=== PATIENT | female | born 1945 | race Caucasian/White ===

== ENCOUNTER 2017-11-28 12:58 | Inpatient (IN) | payer OTHER ==
[2017-11-28] MEDS ORDERED: POLYETHYL GLY 3350 17 GM/DOSE PO PRN (14:59)
[2017-11-28] MEDS ORDERED: ONDANSETRON 4 MG (ODT) TAB PO PRN (14:59)
[2017-11-28] MEDS ORDERED: ACETAMINOPHEN 325 MG TABLET PO PRN (14:59)
[2017-11-28] MEDS ORDERED: ONDANSETRON 4 MG/2 ML VIAL IV PRN (14:59)
[2017-11-28] MEDS ORDERED: DIPHENHYDRAMINE 25 MG TAB/CAP PO PRN (14:59)
[2017-11-28] MEDS ORDERED: HYDROMORPHONE HCL 2 MG/ML inj IV PRN (15:01)
[2017-11-28] MEDS ORDERED: ALBUTEROL 2.5 MG/3 ML NEB SOL IH PRN (15:03)
[2017-11-28 15:11] LABS: Absolute Lymphocytes (CBC) 0.4 K/uL (0.7-4.9); Absolute Monocytes 0.4 K/uL (0.1-1.3); Basophils % 0.3 % (0-1.3); Eosinophils % 0.3 % (0-4.4); Lymphocytes % 6.1 % (15.3-44.8); MCH 29.8 pg (27.0-35.0); MCV 88.2 fL (80-100); MPV 9.1 fL (7.6-11.3); Monocytes % 5.6 % (3.3-12.3); RBC Red Blood Cell Count 4.53 M/uL (3.86-4.86)
[2017-11-28 15:19] LABS: Potassium 3.9 mEq/L (3.6-5.0)
[2017-11-28 15:25] LABS: Albumin 3.8 g/dL (3.2-5.5); Bilirubin Direct 0.2 mg/dL (0-0.2); Bilirubin Total 0.9 mg/dL (0.3-1.2); Magnesium 1.9 mg/dL (1.8-2.5); Phosphorus 2.7 mg/dL (2.5-4.3); Protein, Total 7.3 g/dL (6.0-8.3)
[2017-11-28 15:26] LABS: Protime INR 4.07
[2017-11-28 15:57] LABS: Thyroid Stimulating Hormone 2.52 uIU/mL (0.34-5.60)
[2017-11-28 15:59] LABS: Urine White Blood Cell Casts OK
[2017-11-28 16:00] LABS: Blood Morphology Comment NOT SEEN (NOT SEEN); Platelet Estimate ADEQ
[2017-11-28 16:15] VITALS: BMI 34.9
[2017-11-28] MEDS: METRONIDAZOLE 500mg IVPB 500 MG/100 ML BAG IV SCH (17:35)
[2017-11-28] MEDS: NACHLORIDE 0.45% 1,000 ML IV SCH (17:35)
[2017-11-28] MEDS ORDERED: LEVALBUTEROL 1.25 MG/3 ML NEB IH PRN (17:41)
[2017-11-28] MEDS ORDERED: IPRATROPIUM BROM 0.5MG/2.5ML IH PRN (17:41)
--- NOTE | 2017-11-28 19:07 | RAD REPORT ---
EXAM DESCRIPTION: RAD - Chest Pa And Lat (2 Views) - 11/28/2017 6:54 pm CLINICAL HISTORY: Chest pain. COMPARISON: 05/30/2011 FINDINGS: The lungs are clear. The heart is moderately enlarged. Vertebroplasty cement noted in the mid thoracic levels. IMPRESSION: The heart is moderately enlarged.
--- NOTE | 2017-11-28 19:10 | RAD REPORT ---
EXAM DESCRIPTION: CTAbdomen Pelvis W Contrast - 11/28/2017 6:38 pm CLINICAL HISTORY: Abdominal pain. COMPARISON: 06/26/2008 TECHNIQUE: Biphasic CT imaging of the abdomen and pelvis was performed with 100 ml non-ionic IV cont rast. All CT scans are performed using dose optimization technique as appropriate and may include automated exposure control or mA/KV adjustment according to patient size. FINDINGS: The lung bases are clear. The liver demonstrates fatty infiltration. The spleen, pancreas, adrenal glands and kidneys are withi n normal limits. No bowel obstruction, free air, free fluid or abscess. Appendectomy. Hysterectomy. No evidence of si gnificant lymphadenopathy. No suspicious bony findings. IMPRESSION: No acute intra-abdominal or pelvic finding. Fatty liver.
[2017-11-28] MEDS ORDERED: IPRATROPIUM BROM 0.5MG/2.5ML IH SCH (20:00)
[2017-11-28] MEDS ORDERED: LEVALBUTEROL 1.25 MG/3 ML NEB IH SCH ×2 (20:00)
[2017-11-28] MEDS: CIPROFLOXACIN 400mg IV 400 MG/200 ML BAG IV SCH (22:12)
--- NOTE | 2017-11-28 23:45 | EKG ---
Test Date: 2017-11-28 Test Time: 15:51:54 Chemistry Technologist: NASIM MEASUREMENT RESULTS: Intervals: Rate: 83 MA: QRSD: 88 QT: 322 QTc: 378 [place]e: P: MA: QRS: -64 T: 263 INTERPRETIVE STATEMENTS: Atrial fibrillation Left axis deviation Nonspecific ST and T wave abnormality, probably digitalis effect Abnormal ECG Compared to ECG 04/16/2005 08:14:00 Left-axis deviation now present Sinus rhythm no longer present Electronically Signed On 11-28-17 23:44:47 CDT by Johnie Fernandez
[2017-11-29] MEDS: METRONIDAZOLE 500mg IVPB 500 MG/100 ML BAG IV SCH ×4 (00:49→17:38)
[2017-11-29 04:10] LABS: Absolute Lymphocytes (CBC) 0.5 K/uL (0.7-4.9); Absolute Monocytes 0.5 K/uL (0.1-1.3); Absolute Neutrophil 5.9 K/uL (1.8-8.0); Basophils % 0.3 % (0-1.3); Eosinophils % 0.2 % (0-4.4); Hematocrit 37.3 % (36.0-45.0); Lymphocytes % 6.8 % (15.3-44.8); MCH 29.8 pg (27.0-35.0); MCV 89.1 fL (80-100); MPV 9.2 fL (7.6-11.3); Monocytes % 6.7 % (3.3-12.3); RBC Red Blood Cell Count 4.18 M/uL (3.86-4.86)
[2017-11-29 04:13] LABS: Protime INR 3.68
[2017-11-29] MEDS: LOPERAMIDE HCL 2 MG CAPSULE PO PRN ×2 (04:29→18:48)
[2017-11-29 04:45] LABS: Potassium 3.5 mEq/L (3.6-5.0)
[2017-11-29 04:55] LABS: Magnesium 1.8 mg/dL (1.8-2.5)
[2017-11-29] MEDS ORDERED: MAGNESIUM SULFATE 1 gm IVPB 1 GM/100 ML BAG IV ONE (05:36)
[2017-11-29] MEDS ORDERED: POTASSIUM 25 MEQ EFFERV TAB PO ONE (05:50)
[2017-11-29] MEDS: CIPROFLOXACIN 400mg IV 400 MG/200 ML BAG IV SCH ×2 (08:42→20:20)
--- NOTE | 2017-11-29 11:53 | CON ---
Date of Consultation: 11/28/2017 Reason: Lower abdominal pain and rectal pain. History Of Present Illness: The patient is a 72-year-old female, who comes in with 6-week history of pain in the rectum region on the left side and also occasionally cramping pain in the lower abdomen associated with occasional nausea. She did not have diarrhea prior to being admitted, but after the CAT scan, she has had several of loose bowel movements. She states that the pain is worse after she sits on her bottom. She did have a colonoscopy not too long ago, which was reportedly negative. No fever or chills. She did have 1 episode of chills couple of days ago and the pain got worse over the last [address] Khan yesterday and was admitted for further workup. No sore throat, runn y nose, cough, headaches, or dizziness. No chest pain. Review of Systems: Otherwise unremarkable. Past Medical History: Significant for AFib. Past Surgical History: Hysterectomy, appendectomy, and colon resection 25 years ago. Allergies: NONE. Social History: The patient denies smoking or drinking. Family History: Significant for breast cancer and lung cancer in the parents. Physical Examination: Vital Signs: Stable. She is afebrile. General: She is awake, alert, and oriented x3. Head and Neck: Cranial nerves 2 through 12 grossly within normal limits. No neck masses. No JVD. Throat clear. Neck is supple. Chest: Clear. Heart: S1, S2. Abdomen: Soft, nondistended. Positive bowel sounds. Positive suprapubic tenderness. No rebound, r igidity, or guarding. Extremity: Adequately perfused. Nontender. Neuro: Nonfocal. Rectal: Does not reveal any evidence of abscess. There is a small external hemorrhoid, which is not thrombosed, is nontender. No acute findings. Diagnostic Data: CT of the abdomen and pelvis reviewed with Dr. Miller. essentially reveals mild infla mmation on the left side of the rectum consistent with proctitis. No other significant findings note d. Laboratory Data: Her white count is 6.9 with a left shift. INR is 4.07. She is on Coumadin and alannah cat reviewed essentially unremarkable. Assessment: A 72-year-old, who was proctitis. Recommendation: The patient will need a steroid enemas, GI followup, and antibiotics, which is appro priate for her being on Coumadin. Plan of care discussed in detail with Dr. Kahn. /NEYMAR Voice ID: [id number] Report ID: [id number]
--- NOTE | 2017-11-29 18:02 | P.PN ---
Subjective Date of Service: 11/29/17 Chief Complaint: RECTAL PAIN Subjective: No new changes MS. BEAN STILL IS ABOUT THE SAME. DR. MCPHERSON SAW THE PATIENT. CT SCAN DOES NOT SHOW ANY ABSCESS LIKE SUSPECTED. STILL IN TOO MUCH PAIN. WE ARE WAITING FOR HIS GI DOCTOR NOW. Review of Systems 10-point ROS is otherwise unremarkable General: Weakness, Malaise Physical Examination - Vital Signs Temperature: 97.2 F Blood Pressure: 105/57 Pulse: 81 Respirations: 18 Pulse Ox (%): 95 - Physical Exam General: Alert, Moderate distress HEENT: Atraumatic, PERRLA, EOMI Neck: Supple, JVD not distended Respiratory: Clear to auscultation bilaterally, Normal air movement Cardiovascular: Regular rate/rhythm, Normal S1 S2 Gastrointestinal: Normal bowel sounds, No tenderness Musculoskeletal: No tenderness Integumentary: No rashes Neurological: Normal speech, Normal tone, Normal affect Lymphatics: No axilla or inguinal lymphadenopathy - Studies Laboratory Data (last 24 hrs) 11/29/17 03:48: PT 44.0 H, INR 3.68 11/29/17 03:48: Sodium 136, Potassium 3.5 L, BUN 11, Creatinine 0.97, Glucose 100, Magnesium 1.8 11/29/17 03:48: WBC 6.9, Hgb 12.5, Hct 37.3, Plt Count 157 Medications List Reviewed: Yes Assessment And Plan - Current Problems (Diagnosis) (1) Abdominal pain Onset Date: 11/29/17 Current Visit: Yes Status: Acute Plan: RESUME ABX IV SHE HAS SYMPTOMS BUT NO PHYSICAL CT SCAN FINDINGS. Qualifiers: Abdominal location: left lower quadrant Qualified Code(s): R10.32 - Left lower quadrant pain (2) Rectal pain Onset Date: 11/29/17 Current Visit: Yes Status: Acute Plan: PROCTITIS DR. RACHEL ON CASE HAS HAD ANAL CANCER IN PAST CT SCAN SHOWS PROCTITIS.
[2017-11-30] MEDS: METRONIDAZOLE 500mg IVPB 500 MG/100 ML BAG IV SCH ×3 (00:15→13:12)
[2017-11-30] MEDS: NACHLORIDE 0.45% 1,000 ML IV SCH ×2 (00:20→06:18)
[2017-11-30 06:39] LABS: Absolute Lymphocytes (CBC) 0.8 K/uL (0.7-4.9); Absolute Monocytes 0.4 K/uL (0.1-1.3); Absolute Neutrophil 3.3 K/uL (1.8-8.0); Basophils % 0.4 % (0-1.3); Eosinophils % 2.4 % (0-4.4); MPV 9.1 fL (7.6-11.3); Monocytes % 9.5 % (3.3-12.3); RBC Red Blood Cell Count 4.49 M/uL (3.86-4.86)
[2017-11-30 06:53] LABS: Potassium 3.8 mEq/L (3.6-5.0)
[2017-11-30 06:58] LABS: Protime INR 2.09
[2017-11-30] MEDS ORDERED: POTASSIUM CL SA 10 MEQ TAB PO ONE (09:00)
[2017-11-30] MEDS: CIPROFLOXACIN 400mg IV 400 MG/200 ML BAG IV SCH (09:44)
[2017-11-30 11:36] VITALS: O2SAT 96
--- NOTE | 2017-11-30 13:09 | ECHO ---
HEIGHT: 5 ft 7 in WEIGHT: 221 lb 1.6 oz DATE OF STUDY: 11/30/[address]: Harvey Khan MD 2-DIMENSIONAL: YES M.MODE: YES DOPPLER: YES COLOR FLOW: YES TDS: PORTABLE: DEFINITY: BUBBLE STUDY: DIAGNOSIS: CARDIOMEAGLY CARDIAC HISTORY: CATHERIZATION: NO SURGERY: NO PROSTHETIC VALVE: NO PACEMAKER: NO MEASUREMENTS (cm) DIASTOLIC (NORMALS) SYSTOLIC (NORMALS) IVSd 0.9 (0.6-1.2) LA Diam 4.5 (1.9-4.0) LVEF 50% LVIDd 5.2 (3.5-5.7) LVIDs 3.9 (2.0-3.5) %FS 25% LVPWd 0.9 (0.6-1.2) Ao Diam 3.3 (2.0-3.7) 2 DIMENSIONAL ASSESSMENT: RIGHT ATRIUM: DILATED LEFT ATRIUM: DILATED RIGHT VENTRICLE: NORMAL LEFT VENTRICLE: NORMAL TRICUSPID VALVE: NORMAL MITRAL VALVE: NORMAL PULMONIC VALVE: NORMAL AORTIC VALVE: NORMAL PERICARDIAL EFFUSION: NONE AORTIC ROOT: NORMAL LEFT VENTRICULAR WALL MOTION: NORMAL DOPPLER/COLOR FLOW: MILD TRICUSPID REGURGITATION MILD AORTIC REGURGITATION NORMAL RIGHT VENTRICULAR SYSTOLIC PRESSURE COMMENTS: NORMAL LEFT VENTRICULAR EJECTION FRACTION. DILATED LEFT ATRIUM. DILATED RIGHT ATRIUM. MILD AORTIC REGURGITATION. MILD TRICUSPID REGURGITATION. ATRIAL FIBRRLATION. TECHNOLOGIST: JERE GARCIA
[2017-11-30 14:25] VITALS: BP 135/53; TEMP 97.8
--- NOTE | 2017-12-11 07:35 | P.DS ---
Admission Date: 11/28/17 Discharge Date: 12/11/17 Disposition: ROUTINE DISCHARGE Discharge Condition: FAIR Reason for Admission: RECTAL PAIN - Problems (1) Abdominal pain Onset Date: 11/29/17 Status: Acute Qualifiers: Abdominal location: left lower quadrant Qualified Code(s): R10.32 - Left lower quadrant pain (2) Rectal pain Onset Date: 11/29/17 Status: Acute Hospital Course: MS. BEAN HAS LOWER ABDOMEN PAIN, LLQ AND HYPOGASTRIC. SHE IMPROVES ON IV ABX. SHEIS ON WARFARIN SO I AVOIDED CIPRO IF I COULD. SHE IS DISCHARGED HOME IN STABLE CONDITION WITH CEFTIN PO. AND FU NEXT WEEK. Vital Signs/Physical Exam: Temp Pulse Resp BP Pulse Ox 97.8 F 71 18 135/53 L 95 11/30/17 12:00 11/30/17 12:00 11/30/17 12:00 11/30/17 12:00 11/30/17 12:00 Laboratory Data at Discharge: WBC 4.7 K/uL (4.3-10.9) D 11/30/17 05:58 Hgb 13.5 g/dL (12.0-15.0) 11/30/17 05:58 Hct 40.0 % (36.0-45.0) 11/30/17 05:58 Plt Count 156 K/uL (152-406) 11/30/17 05:58 PT 24.8 SECONDS (9.5-12.5) H 11/30/17 05:58 INR 2.09 11/30/17 05:58 APTT 48.5 SECONDS (24.3-36.9) H 11/28/17 14:56 Sodium 137 mEq/L (135-145) 11/30/17 05:58 Potassium 3.8 mEq/L (3.6-5.0) 11/30/17 05:58 BUN 14 mg/dL (6-20) 11/30/17 05:58 Creatinine 0.94 mg/dL (0.44-1.00) 11/30/17 05:58 Glucose 87 mg/dL (65-120) 11/30/17 05:58 Phosphorus 2.7 mg/dL (2.5-4.3) 11/28/17 14:56 Magnesium 2.0 mg/dL (1.8-2.5) 11/30/17 05:58 Total Bilirubin 0.9 mg/dL (0.3-1.2) 11/28/17 14:56 AST 28 IU/L (10-42) 11/28/17 14:56 ALT 23 IU/L (10-60) 11/28/17 14:56 Alkaline Phosphatase 58 IU/L (42-121) 11/28/17 14:56 Home Medications: Warfarin Sodium [Coumadin*] 8 mg PO DAILY 11/28/17 Cefuroxime [Ceftin] 250 mg PO BID #14 tab 11/30/17 New Medications: Cefuroxime [Ceftin] 250 mg PO BID #14 tab Patient Discharge Instructions: REDUCE WARFARIN TO 6 MG DAILY WHILE YOU ARE TAKING ABX. COME TO OFFICE ON TUESDAY 4 PM. Followup: Harvey Khan MD [Primary Care Provider] - 12/07/17 4:00 pm (follow up)
--- NOTE | 2018-02-26 23:45 | CON ---
Date of Consultation: 11/30/2017 Reason For Consultation: Proctitis with rectal pain for months. History Of Present Illness: The patient is a 72-year-old white female with history of atrial fibrill ation, essential tremor, depression, recurrent sinus infection, and anal cancer. The patient has bee n in hospital due to persistent rectal pain for months. She also has some fevers, chills, and some l ower abdominal pain as well on admission in the right lower quadrant and left upper quadrant as well. The patient came into the hospital and found to have proctitis, has been improving on IV fluids, IV antibiotics. Rectal pain, 10/10 on admission, now down to none. She only has pain if she sits up. She feels like she is 90% improved on therapy. She did have some fevers, chills, nausea, right lowe r quadrant pain, left upper quadrant pain on admission as well. She has also had a recent increase i n stress. She had a colonoscopy in 2017. She has had the rectal pain over the past month, it appear s by her report today. Past Medical History: Significant for atrial fibrillation, atrial flutter, essential tremor, pain in left hip, paresthesias, depression, recurrent sinus infection, and anal cancer. Medications: At home include Prilosec, meclizine, Restasis, Aldactone, Coumadin. Allergies: NKDA. Social History: She is . Son in 2007 with lymphoma. Daughter on November 17, 2017, due to the Lyme disease. She is raising 3 great grandsons for the past 12 years. 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 Family History: Father of lung cancer, smoker, and diabetes as well. Mother of breast can cer with metastatic to the bone. Review of Systems: The patient has rectal pain, right lower quadrant and left lower quadrant pain, increased stress, fev ers, chills, nausea. She denies any melena, hematochezia, hemoptysis, hematuria, dysuria or polydipsia. No lower extremity, paresthesias, muscle aches, joint aches, backaches. Does have a little bit of depression . No seizure or syncope. Physical Examination: Vital Signs: The patient is 5 feet 7 inches, 223 pounds, BMI of 35 kg/m2. She has temperature 97.7 degrees Fahrenheit, pulse 68, respirations 18, blood pressure 108/56, O2 saturation 97%. HEENT: Normocephalic and atraumatic. Anicteric. Pupils equal, round, and reactive to light. Extra ocular movements are intact. Oropharynx is clear. Neck: Supple with no masses. Respirations: Clear to auscultation bilaterally. Cardiac: Regular. No gallops or rubs. Gastrointestinal: Positive bowel sounds. Soft, nondistended. There are some mild right lower quadr ant tenderness and left quadrant tenderness. No peritoneal or Zapata sign. No rebound. Extremities: No clubbing, cyanosis, or edema. 2+ pulses. Neuro: Alert and oriented x3. Grossly nonfocal. 5/5 motor strength. Sensation intact to light gato ch. Laboratory Data: The patient has a white count of 4.7, hemoglobin 13.5, hematocrit 40.3, MCV of 89, platelet count 156, polys 71% down from 86% yesterday, lymphocytes 17%, monocytes 10%, and eosinophil s 2%. PT of 24.8, INR of 2.1. Chemistry; sodium of 137, potassium 3.8, chloride 106, bicarb 24, BUN of 14, creatinine of 0.9, glucose 87, calcium 8.4, magnesium 2.0, total bilirubin 0.9, direct biliru bin 0.2, AST 28, ALT 23, alkaline phosphatase 58, total protein 7.3, albumin 3.8. Vitamin B12 of 410 . Vitamin D low at 28. TSH is 2.52. Imaging: CT of the abdomen and pelvis reveals no acute finding, but does have some fatty liver. Impression: Proctitis, improving on IV fluids and antibiotics. The patient had rectal pain 10/10 on admission, now down to none, has pain only now when she sits up. She feels 95% improved since admis corrina with some fevers, chills, and nausea on admission, that seems to be better. No night sweats or emesis. Right lower quadrant and left quadrant pain that are mild. She has increased str ess. Recent colonoscopy in 2017. She reports rectal pain from past month has improved on therapy in hospital. Recommendations: 1.We will continue on IV antibiotics and IV fluids. 2.We will continue p.r.n. pain medications and antiemetics. 3.GI Clinic followup. MLEANIE Voice ID: [id number] Report ID: [id number]
== END 2017-11-30 14:34 | disposition home or self-care (01) | DRG 395 ==
LOC: 4TH 14:16
PROVIDERS: ADMIT Internal Medicine; ATTEND Internal Medicine
DX: K62.89 Other specified diseases of anus and rectum (principal); R10.32 Left lower quadrant pain; I48.91 Unspecified atrial fibrillation; Z85.048 Personal history of other malignant neoplasm of rectum, rectosigmoid junction, and anus; Z79.01 Long term (current) use of anticoagulants
CPT/HCPCS: 36415; 71046; 74177; 80048; 80076; 82306; 82607; 83735; 84100; 84443; 85025; 85610; 85730; 87077; 87086; 87088; 87186; 93005; 93306; J0744; J3475; Q9967

== ENCOUNTER 2018-04-23 17:53 | Emergency (ER) | payer OTHER ==
[2018-04-23] MEDS ORDERED: ASPIRIN 81 MG CHEWABLE TABLET ONE (18:44)
[2018-04-23 18:53] LABS: Protime INR 2.97
[2018-04-23 18:55] LABS: Absolute Lymphocytes (CBC) 0.9 K/uL (0.7-4.9); Absolute Monocytes 0.4 K/uL (0.1-1.3); Absolute Neutrophil 2.3 K/uL (1.8-8.0); Basophils % 0.6 % (0-1.3); Eosinophils % 3.1 % (0-4.4); Hematocrit 37.4 % (36.0-45.0); Lymphocytes % 24.7 % (15.3-44.8); MCH 30.1 pg (27.0-35.0); MCV 89.6 fL (80-100); MPV 9.3 fL (7.6-11.3); Monocytes % 9.7 % (3.3-12.3); RBC Red Blood Cell Count 4.18 M/uL (3.86-4.86)
[2018-04-23 19:08] LABS: ALT/SGPT 27 U/L (12-78); AST/SGOT 24 U/L (15-37); Alkaline Phosphatase 86 U/L (45-117); BUN Blood Urea Nitrogen 15 mg/dL (7-18); Bicarbonate 28 mmol/L (21-32); Bilirubin Direct < 0.1 mg/dL (0-0.2); Bilirubin Total 0.3 mg/dL (0.2-1.0); Glucose Level 90 mg/dL (74-106); Magnesium 2.3 mg/dL (1.8-2.4); NT PRO-BNP 684 pg/mL (<125); Protein, Total 6.8 g/dL (6.4-8.2); Sodium Level 141 mmol/L (136-145); Troponin (Emerg Dept Use Only) < 0.02 ng/mL (0.0-0.045)
--- NOTE | 2018-04-23 19:22 | RAD REPORT ---
EXAM DESCRIPTION: RAD - Chest Single View - 04/23/2018 7:05 pm CLINICAL HISTORY: CHEST PAIN Chest pain. COMPARISON: Chest Pa And Lat (2 Views) dated 11/28/2017; CHEST PA AND LAT 2 VIEW dated 05/14/2011; AUGUSTO ST PA AND LAT 2 VIEW dated 06/26/2008 FINDINGS: Portable technique limits examination quality. The lungs are grossly clear. The heart is mildly prominent size. No displaced fractures. IMPRESSION: No acute intrathoracic process suspected.
--- NOTE | 2018-04-23 22:46 | EDPHYS ---
Physician Documentation [facility] Name: Ariadne Banerjee Age: 72 yrs Sex: Female : 1945 Arrival Date: 04/23/2018 Time: 17:54 Bed 27 Private MD: Harvey Khan V ED Physician Christine Blackmon HPI: 04/23 19:00 This 72 yrs old Female presents to ER via Ambulatory with complaints of Chest pm1 Pain. 19:00 The patient or guardian reports chest pain that is located primarily in the anterior pm1 chest wall, left. Onset: 4 day(s) ago. The pain does not radiate. Associated signs and symptoms: Pertinent negatives: abdominal pain, cough, diaphoresis, headache, nausea, shortness of breath, vomiting. The chest pain is described as aching. Duration: The patient or guardian reports a single episode, that is still ongoing, but improving. Modifying factors: the symptoms are aggravated by deep breath, palpation of area. Severity of pain: in the emergency department the pain is a 3 / 10. The patient has not experienced similar symptoms in the past. The patient has not recently seen a physician, the patient's primary care provider is Dr. Khan and Dr. Finch. Patient with constant chest pain for 4 days underneath her left breast. Pain reproduced with deep breathing and palpation. Patient without any other symptoms besides chest pain. No shortness of breath, diaphoresis, nausea, or vomiting. Historical: - Allergies: 18:00 No Known Allergies; hj - Home Meds: 18:00 citalopram 20 mg tab 1 tab once daily [Active]; warfarin 4 mg Oral tab 2 tabs once hj daily [Active]; famotidine 20 mg Oral tab 1 tab once daily [Active]; - PMHx: 18:00 Atrial Fib; hj - PSHx: 18:00 Appendectomy; Hysterectomy; colon resection; hj - Immunization history:: Adult Immunizations up to date. - Social history:: Smoking status: Patient/guardian denies using tobacco, Patient/guardian denies using alcohol. - Ebola Screening: : Patient negative for fever greater than or equal to 101.5 degrees Fahrenheit, and additional compatible Ebola Virus Disease symptoms Patient denies exposure to infectious person Patient denies travel to an Ebola-affected area in the 21 days before illness onset. ROS: 19:00 Constitutional: Negative for fever, chills, and weight loss, Eyes: Negative for injury, pm1 pain, redness, and discharge, ENT: Negative for injury, pain, and discharge, Neck: Negative for injury, pain, and swelling. 19:00 Respiratory: Negative for shortness of breath, cough, wheezing, and pleuritic chest pain, Abdomen/GI: Negative for abdominal pain, nausea, vomiting, diarrhea, and constipation, Back: Negative for injury and pain, : Negative for injury, bleeding, discharge, and swelling, MS/Extremity: Negative for injury and deformity, Skin: Negative for injury, rash, and discoloration, Neuro: Negative for headache, weakness, numbness, tingling, and seizure. 19:00 Cardiovascular: Positive for chest pain, Negative for edema, orthopnea, palpitations. Exam: 19:00 Constitutional: This is a well developed, well nourished patient who is awake, alert, pm1 and in no acute distress. Head/Face: Normocephalic, atraumatic. Eyes: Pupils equal round and reactive to light, extra-ocular motions intact. Lids and lashes normal. Conjunctiva and sclera are non-icteric and not injected. Cornea within normal limits. Periorbital areas with no swelling, redness, or edema. ENT: Nares patent. No nasal discharge, no septal abnormalities noted. Tympanic membranes are normal and external auditory canals are clear. Oropharynx with no redness, swelling, or masses, exudates, or evidence of obstruction, uvula midline. Mucous membranes moist. Neck: Trachea midline, no thyromegaly or masses palpated, and no cervical lymphadenopathy. Supple, full range of motion without nuchal rigidity, or vertebral point tenderness. No Meningismus. 19:00 Cardiovascular: Regular rate and rhythm with a normal S1 and S2. No gallops, murmurs, or rubs. Normal PMI, no JVD. No pulse deficits. 19:00 Respiratory: Lungs have equal breath sounds bilaterally, clear to auscultation and percussion. No rales, rhonchi or wheezes noted. No increased work of breathing, no retractions or nasal flaring. Abdomen/GI: Soft, non-tender, with normal bowel sounds. No distension or tympany. No guarding or rebound. No evidence of tenderness throughout. Back: No spinal tenderness. No costovertebral tenderness. Full range of motion. Skin: Warm, dry with normal turgor. Normal color with no rashes, no lesions, and no evidence of cellulitis. MS/ Extremity: Pulses equal, no cyanosis. Neurovascular intact. Full, normal range of motion. 19:00 Chest/axilla: Inspection: normal, Palpation: tenderness, of the left breast, that totally reproduces the patient's complaints. 19:00 atrial fibrillation 19:00 Neuro: Orientation: is normal, Motor: Sensation: is normal, no obvious gross deficits, Gait: is steady, at a normal pace, without difficulty. Vital Signs: 18:01 BP 127 / 76; Pulse 61; Resp 18; Temp 98.0; Pulse Ox 97% on R/A; Weight 104.33 kg; hj Height 5 ft. 7 in. (170.18 cm); Pain 2/10; 19:20 BP 118 / 63; Pulse 64; Resp 18; Pulse Ox 98% on R/A; mg2 20:37 BP 108 / 51; Pulse 62; Resp 18; Pulse Ox 100% on R/A; mg2 21:34 BP 125 / 59; Pulse 65; Resp 18; Pulse Ox 96% on R/A; mg2 23:19 BP 120 / 70; Pulse 70; Resp 18; Pulse Ox 100% on R/A; Pain 0/10; mg2 18:01 Body Mass Index 36.02 (104.33 kg, 170.18 cm) MDM: 18:12 Patient medically screened. pm1 22:40 ED course: Patient with apparent chest wall pain (pain reproducible with deep breathing pm1 and palpation). Patient with negative troponin greater than 4 hours apart. Patient with constant chest pain that started 3 days ago. Will discharge patient home to follow up with her PCP. 22:44 Data reviewed: vital signs. Data interpreted: Pulse oximetry: on room air is 96 %. pm1 Interpretation: normal. Counseling: I had a detailed discussion with the patient and/or guardian regarding: the historical points, exam findings, and any diagnostic results supporting the discharge/admit diagnosis, lab results, radiology results, the need for outpatient follow up, to return to the emergency department if symptoms worsen or persist or if there are any questions or concerns that arise at home. 04/23 18:10 Order name: Basic Metabolic Panel; Complete Time: 19:13 mg2 04/23 18:10 Order name: CBC with Diff; Complete Time: 19:13 mg2 04/23 18:10 Order name: LFT's; Complete Time: 19:13 mg2 04/23 18:10 Order name: Magnesium; Complete Time: 19:13 mg2 04/23 18:10 Order name: NT PRO-BNP; Complete Time: 19:13 mg2 04/23 18:10 Order name: PT-INR; Complete Time: 19:13 mg2 04/23 18:10 Order name: Troponin (emerg Dept Use Only); Complete Time: 19:13 mg2 04/23 18:10 Order name: XRAY Chest (1 view); Complete Time: 19:39 mg2 04/23 18:10 Order name: EKG; Complete Time: 18:10 mg2 04/23 18:10 Order name: Cardiac monitoring; Complete Time: 18:29 mg2 04/23 18:10 Order name: EKG - Nurse/Tech; Complete Time: 18:29 mg2 04/23 18:10 Order name: IV Saline Lock; Complete Time: 18:29 mg2 04/23 22:08 Order name: Troponin I: repeat; Complete Time: 22:44 mg2 04/23 18:10 Order name: Labs collected and sent; Complete Time: 18:29 mg2 04/23 18:10 Order name: O2 Per Protocol; Complete Time: 18:29 mg2 04/23 18:10 Order name: O2 Sat Monitoring; Complete Time: 18:29 mg2 04/23 22:08 Order name: EKG - Nurse/Tech; Complete Time: 22:34 mg2 Administered Medications: 18:41 Drug: Aspirin Chewable Tablet 324 mg Route: PO; mg2 19:02 Follow up: Response: No adverse reaction mg2 Disposition: 04/24 09:54 Co-signature as Attending Physician, Christine Blackmon MD. ma2 Disposition: 04/23/18 22:45 Discharged to Home. Impression: Chest pain, unspecified. - Condition is Stable. - Discharge Instructions: Nonspecific Chest Pain. - Medication Reconciliation Form, Thank You Letter form. - Follow up: Emergency Department; When: 2 - 3 days; Reason: Recheck today's complaints, Continuance of care, Re-evaluation by your physician. Follow up: Harvey Khan MD; When: 2 - 3 days; Reason: Recheck today's complaints, Continuance of care, Re-evaluation by your physician. - Problem is new. - Symptoms have improved. Signatures: Dispatcher [employer] EDMS Calixto Rust, RN RN hj Asa Arzate NP MECHANICAL FITTER pm1 Christine Blackmon MD MD ma2 Andres Purcell RN RN mg2 Corrections: (The following items were deleted from the chart) 04/23 23:20 22:45 04/23/2018 22:45 Discharged to Home. Impression: Chest pain, unspecified. mg2 Condition is Stable. Forms are Medication Reconciliation Form, Thank You Letter, Antibiotic Education, Prescription Opioid Use. Follow up: Emergency Department; When: 2 - 3 days; Reason: Recheck today's complaints, Continuance of care, Re-evaluation by your physician. Follow up: Harvey Khan; When: 2 - 3 days; Reason: Recheck today's complaints, Continuance of care, Re-evaluation by your physician. Problem is new. Symptoms have improved. pm1
--- NOTE | 2018-04-23 22:46 | ER ---
Nurse's Notes [facility] Name: Ariadne Banerjee Age: 72 yrs Sex: Female : 1945 Arrival Date: 04/23/2018 Time: 17:54 Bed 27 Private MD: Harvey Khan V Diagnosis: Chest pain, unspecified Presentation: 04/23 17:56 Presenting complaint: Patient states: last Tuesday, i started having chest pain, hj pressure, squeezing type pain; on and off; 01/17; reports SOB: pain is till present till today that triggered me to come to the ED; hx of A fib;. Transition of care: patient was not received from another setting of care. Onset of symptoms was April 23, 2018. Risk Assessment: Do you want to hurt yourself or someone else? Patient reports no desire to harm self or others. Initial Sepsis Screen: Does the patient meet any 2 criteria? No. Patient's initial sepsis screen is negative. Does the patient have a suspected source of infection? No. Patient's initial sepsis screen is negative. Care prior to arrival: None. 17:56 Method Of Arrival: Ambulatory 17:56 Acuity: GRETCHEN 3 hj Triage Assessment: 18:00 General: Appears in no apparent distress. uncomfortable, obese, Behavior is calm, hj cooperative, appropriate for age. Pain: Complains of pain in chest Pain radiates to back Pain currently is 2 out of 10 on a pain scale. Cardiovascular: Capillary refill < 3 seconds Patient's skin is warm and dry. Historical: - Allergies: 18:00 No Known Allergies; hj - Home Meds: 18:00 citalopram 20 mg tab 1 tab once daily [Active]; warfarin 4 mg Oral tab 2 tabs once hj daily [Active]; famotidine 20 mg Oral tab 1 tab once daily [Active]; - PMHx: 18:00 Atrial Fib; hj - PSHx: 18:00 Appendectomy; Hysterectomy; colon resection; hj - Immunization history:: Adult Immunizations up to date. - Social history:: Smoking status: Patient/guardian denies using tobacco, Patient/guardian denies using alcohol. - Ebola Screening: : Patient negative for fever greater than or equal to 101.5 degrees Fahrenheit, and additional compatible Ebola Virus Disease symptoms Patient denies exposure to infectious person Patient denies travel to an Ebola-affected area in the 21 days before illness onset. Screenin:01 Abuse screen: Denies threats or abuse. Denies injuries from another. Nutritional hj screening: No deficits noted. Tuberculosis screening: No symptoms or risk factors identified. Fall Risk None identified. Assessment: 18:01 Pain: Pain began 4 daysa go. hj 18:30 General: Appears in no apparent distress. comfortable, Behavior is calm, cooperative. mg2 Pain: Complains of pain in back and chest Pain does not radiate. Pain currently is 3 out of 10 on a pain scale. Quality of pain is described as aching, Is intermittent. Neuro: Level of Consciousness is awake, alert, obeys commands, Oriented to person, place, time, situation. Cardiovascular: Capillary refill < 3 seconds Patient's skin is warm and dry. Rhythm is atrial fibrillation. Respiratory: Airway is patent Respiratory effort is even, unlabored, Respiratory pattern is regular, symmetrical. GI: No signs and/or symptoms were reported involving the gastrointestinal system. : No signs and/or symptoms were reported regarding the genitourinary system. EENT: No signs and/or symptoms were reported regarding the EENT system. Derm: Skin is intact, is healthy with good turgor, Skin is pink, warm \T\ dry. normal. Musculoskeletal: Circulation, motion, and sensation intact. 23:20 Reassessment: Patient appears in no apparent distress at this time. Patient and/or mg2 family updated on plan of care and expected duration. Pain level reassessed. Patient is alert, oriented x 3, equal unlabored respirations, skin warm/dry/pink. Vital Signs: 18:01 BP 127 / 76; Pulse 61; Resp 18; Temp 98.0; Pulse Ox 97% on R/A; Weight 104.33 kg; hj Height 5 ft. 7 in. (170.18 cm); Pain 2/10; 19:20 BP 118 / 63; Pulse 64; Resp 18; Pulse Ox 98% on R/A; mg2 20:37 BP 108 / 51; Pulse 62; Resp 18; Pulse Ox 100% on R/A; mg2 21:34 BP 125 / 59; Pulse 65; Resp 18; Pulse Ox 96% on R/A; mg2 23:19 BP 120 / 70; Pulse 70; Resp 18; Pulse Ox 100% on R/A; Pain 0/10; mg2 18:01 Body Mass Index 36.02 (104.33 kg, 170.18 cm) ED Course: 17:54 Patient arrived in ED. rg4 17:54 Harvey Khan MD is Private Physician. rg4 17:58 Triage completed. hj 18:01 Arm band placed on right wrist. hj 18:01 Patient has correct armband on for positive identification. Placed in gown. Bed in low hj position. Call light in reach. Side rails up X 1. Adult w/ patient. quality assurance monitor chassis on. Pulse ox on. NIBP on. 18:01 Patient maintains SpO2 saturation greater than 95% on room air. hj 18:05 Asa Arzate NP is PHCP. pm1 18:05 Christine Blackmon MD is Attending Physician. pm1 18:06 Andres Purcell, CARLOS is Primary Nurse. mg2 18:15 EKG done, by ED staff, reviewed by Asa Arzate DIGITAL COMMENTATOR. mb4 18:30 No provider procedures requiring assistance completed. Inserted saline lock: 20 gauge mg2 in right forearm, using aseptic technique. Blood collected. 19:05 XRAY Chest (1 view) In Process Unspecified. EDMS 22:22 Lab(s) recollected, by me, sent to lab. mb4 22:22 Troponin I: repeat Sent. mb4 22:45 Harvey Khan MD is Referral Physician. pm1 23:20 IV discontinued, intact, bleeding controlled, No redness/swelling at site. Pressure mg2 dressing applied. Administered Medications: 18:41 Drug: Aspirin Chewable Tablet 324 mg Route: PO; mg2 19:02 Follow up: Response: No adverse reaction mg2 Outcome: 22:45 Discharge ordered by . pm1 23:20 Discharged to home ambulatory, with family. mg2 23:20 Condition: stable 23:20 Discharge instructions given to patient, family, Instructed on discharge instructions, follow up and referral plans. Demonstrated understanding of instructions, follow-up care. 23:20 Patient left the ED. mg2 Signatures: Dispatcher [employer] EDMS Calixto Rust RN RN Asa Arzate NP DIGITAL COMMENTATOR pm1 Maritza Pratt rg4 Andres Purcell RN RN [facility] [place] Almaraz mb4 Corrections: (The following items were deleted from the chart) 18:02 18:00 Pain: Complains of pain in chest Pain radiates to back Pain currently is 7 out of hj 10 on a pain scale. hj
--- NOTE | 2018-04-24 10:03 | EKG ---
Test Date: 2018-04-23 Test Time: 22:30:46 Senior Property Accountant: MADIHA MEASUREMENT RESULTS: Intervals: Rate: 64 IL: QRSD: 94 QT: 440 QTc: 453 [place]: P: IL: QRS: -27 T: -16 INTERPRETIVE STATEMENTS: Atrial fibrillation with premature ventricular or aberrantly conducted complexes Abnormal ECG Compared to ECG 11/28/2017 15:51:54 Ventricular premature complex(es) now present Left-axis deviation no longer present ST (T wave) deviation no longer present Electronically Signed On 04-24-18 10:02:40 CDT by Johnie Fernandez
--- NOTE | 2018-04-24 10:04 | EKG ---
Test Date: 2018-04-23 Test Time: 18:08:56 Manager Event: MADIHA MEASUREMENT RESULTS: Intervals: Rate: 65 MI: QRSD: 84 QT: 376 QTc: 391 [place]: P: MI: QRS: -54 T: -71 INTERPRETIVE STATEMENTS: Atrial fibrillation Left axis deviation Nonspecific ST and T wave abnormality Abnormal ECG Compared to ECG 11/28/2017 15:51:54 No significant changes Electronically Signed On 04-24-18 10:03:41 CDT by Johnie Fernandez
[2018-04-25 14:12] VITALS: BP 120/70; TEMP 98; O2SAT 100
== END 2018-04-23 23:20 | disposition home or self-care (01) ==
LOC: ER 17:53
DX: R07.9 Chest pain, unspecified (principal); I48.91 Unspecified atrial fibrillation; Z79.01 Long term (current) use of anticoagulants
CPT/HCPCS: 36415; 71045; 80048; 80076; 83735; 83880; 84484; 85025; 85610; 93005; 99285

== ENCOUNTER 2021-11-17 06:50 | Day surgery (SDC) | payer OTHER ==
[2021-11-04 15:08] LABS: Absolute Lymphocytes (CBC) 0.9 K/uL (0.7-4.9); Hematocrit 37.8 % (36.0-45.0); Lymphocytes % 27.8 % (15.3-44.8); MPV 10.1 fL (7.6-11.3)
[2021-11-04 15:15] LABS: Protime INR 1.12
[2021-11-04 15:22] LABS: Potassium 3.7 mmol/L (3.5-5.1)
--- NOTE | 2021-11-04 15:25 | RAD REPORT ---
EXAM DESCRIPTION: Juancarlos Robin And Lat (2 Views)11/04/2021 3:10 pm CLINICAL HISTORY: Preop for heart catheterization. Atrial fibrillation COMPARISON: 2020 FINDINGS: The lungs appear clear of acute infiltrate. The heart is moderately enlarged. Cement has been placed into thoracic vertebral body compression fractures
[2021-11-17] MEDS ORDERED: HEPA 1000U/500MLS 1,000 UNIT/500 ML BAG IV ONE ×2 (07:03→07:48)
[2021-11-17] MEDS ORDERED: LIDOCAINE 1% MPF 30 ML VIAL ONE (07:03)
[2021-11-17] MEDS ORDERED: NA CHLORIDE 0.9% 500 ML ONE (07:05)
[2021-11-17] MEDS ORDERED: ATROPINE SULF 1 MG/10 ML SYR IV ONE (07:29)
[2021-11-17] MEDS ORDERED: MIDAZOLAM HCL 2 MG/2 ML INJ ONE (07:29)
[2021-11-17] MEDS ORDERED: NA CHLORIDE 0.9% 0 ML ONE (07:29)
[2021-11-17] MEDS ORDERED: FENTANYL CITR 100 MCG/2 ML ONE (07:29)
--- NOTE | 2021-11-17 08:04 | OP ---
Surgeon: Samir Alex MD Cna Gna: Ms. Ashly Mccallum. Admitted to my service today on 11/17/2021 to the labor utilization superintendent as an outpatient. Procedure Performed: Left heart catheterization and selective coronary arteriogram. Indications: Ms. Banerjee is 76. Has had a history of shortness of breath and chest pain and chronic atrial fibrillation. She does take Xarelto. She held it for about 48 hours prior to the procedure. She has had an abnormal stress test. Continues to have symptoms. Scheduled for heart catheterizati on with selective coronary arteriogram today. Procedure In Detail: The patient was prepped and draped in the routine sterile fashion. Given Verse d and fentanyl for sedation. Using the Seldinger technique, 6-Colombian sheath was introduced in the [facility] common femoral artery successfully. Angiography there was normal. Angio-Seal was used to close the case. Francisco catheter left and right were used to cannulate the left main and right main respec tively. She was found to have perfectly normal coronaries. There were no complications. The patien t tolerated the procedure well. Blood Loss: 5 mL. Postoperative Diagnoses: Chest pain, shortness of breath, and atrial fibrillation that is chronic, p ositive stress test in the apical segment with normal coronaries. Plan: For medical therapy. She will go home today in 2 hours after bedrest. She will resume her Xa relto tomorrow. DIANDRA/NEYMAR Voice ID: [id number] Report ID: [id number]
[2021-11-17 08:41] VITALS: TEMP 97.3
[2021-11-17] MEDS ORDERED: NA CHLORIDE 0.9% 50 ML ONE (08:51)
[2021-11-17 09:31] VITALS: BP 112/63; O2SAT 97
== END 2021-11-17 09:40 | disposition home or self-care (01) ==
LOC: CCL 06:50
DX: R94.39 Abnormal result of other cardiovascular function study (principal); R07.9 Chest pain, unspecified; R06.02 Shortness of breath; I48.21 Permanent atrial fibrillation; I10 Essential (primary) hypertension; E78.2 Mixed hyperlipidemia; Z79.01 Long term (current) use of anticoagulants; Z79.899 Other long term (current) drug therapy
CPT/HCPCS: 85025; 80048; 36415; 85610; 85730; 71046; 93454; C1893; C1760; Q9967; G0269; J2250; J3010; J7040; J1644 ×2; J0583

== ENCOUNTER 2023-03-24 08:13 | Day surgery (SDC) | payer OTHER ==
[2023-03-24] MEDS ORDERED: NA CHLORIDE 0.9% 500 ML ONE (08:25)
[2023-03-24] MEDS ORDERED: MIDAZOLAM HCL 2 MG/2 ML INJ ONE (08:54)
[2023-03-24] MEDS ORDERED: MIDAZOLAM HCL 0 ML ONE (08:55)
[2023-03-24] MEDS ORDERED: FLUMAZENIL 0.1 MG/ML (5 mL VIAL) IV ONE (08:55)
[2023-03-24] MEDS ORDERED: HYDRALAZINE HCL 20 MG/ML VIAL ONE (08:55)
[2023-03-24] MEDS ORDERED: ATROPINE SULF 1 MG/10 ML SYR IV ONE (08:55)
[2023-03-24] MEDS ORDERED: METOPROLOL TARTRATE 5 MG/5 ML INJ IV ONE (08:55)
[2023-03-24] MEDS ORDERED: LIDOCAINE 2% MPF 5 ML VIAL ONE (09:32)
[2023-03-24] MEDS ORDERED: propofoL 200 MG/20 ML VIAL IV ONE (09:32)
--- NOTE | 2023-03-24 10:10 | OP ---
Date of Procedure: 03/24/2023 Surgeon: ALEXUS PELAYO Procedure Performed: Transesophageal echocardiogram. Indication: Atrial fibrillation, status post Watchman placement. Description Of Procedure: After risks, benefits, alternatives were explained, the patient agreed to procedure and signed informed consent. After proper time-out, deep sedation with propofol was admini stered by Anesthesia and then I inserted SHARATH probe without difficulties. Watchman was seated well. No leak or thrombus. Then, SHARATH probe was removed and the patient was sent to recovery in stable cond ition. Conclusion: Successful transesophageal echocardiogram with Watchman seated well. No leak or thrombu s. Plan is to stop Hardeeprelto. /NEYMAR Voice ID: [id number] Report ID: [id number]
--- NOTE | 2023-03-24 13:51 | TEE ---
TRANSESOPHAGEAL ECHOCARDIOGRAM REPORT CARDIOLOGY DEPARTMENT DATE OF STUDY: 03/24/2023 HEIGHT: 5'7 WEIGHT: 221 DIAGNOSIS: POST WATCHMAN CARDIAC HISTORY: CATHERIZATION: SURGERY: PROSTHETIC VALVE: PACEMAKER: 2 DIMENSIONAL ASSESSMENT: RIGHT ATRIUM: LEFT ATRIUM: RIGHT VENTRICLE: LEFT VENTRICLE: TRICUSPID VALVE: MITRAL VALVE: PULMONIC VALVE: AORTIC VALVE: PERICARDIAL EFFUSION: AORTIC ROOT: EJECTION FRACTION: % LEFT VENTRICULAR WALL MOTION: DOPPLER/COLOR FLOW: COMMENTS: 1. SHARATH PROBE WAS INSERTED WITH NO DIFFICULTY. 2. WATCHMAN IS SEATED WELL, NO LEAK, NO THROMBUS. TECHNOLOGIST: Bishnu RENEE
== END 2023-03-24 10:53 | disposition home or self-care (01) ==
LOC: EKG 08:13
PROVIDERS: ATTEND Internal Medicine
DX: I48.11 Longstanding persistent atrial fibrillation (principal); Z98.890 Other specified postprocedural states; I10 Essential (primary) hypertension; E78.5 Hyperlipidemia, unspecified
CPT/HCPCS: 93312; J2704; J2001; J7040; J0360; J0461; J2250

== ENCOUNTER 2023-10-03 08:00 | Observation (INO) | payer OTHER ==
[2023-10-03] MEDS ORDERED: ASPIRIN 81 MG CHEWABLE TABLET ONE (08:17)
[2023-10-03 08:36] LABS: Absolute Basophils 0.1 K/uL (0-0.5); Absolute Eosinophils 0.1 K/uL (0-0.5); Absolute Lymphocytes (CBC) 0.7 K/uL (0.7-4.9); Absolute Monocytes 0.4 K/uL (0.1-1.3); Absolute Neutrophil 3.6 K/uL (1.8-8.0); Basophils % 1.1 % (0-1.3); Hemoglobin 14.1 g/dL (12.0-15.0); Lymphocytes % 14.5 % (15.3-44.8); MCH 29.7 pg (27.0-35.0); MCHC 33.6 g/dL (32.0-36.0); MCV 88.4 fL (80-100); MPV 8.7 fL (7.6-11.3); Monocytes % 7.2 % (3.3-12.3); Neutrophils % 74.2 % (41.7-73.7); Nucleated Red Blood Cells % 0.1 % (0-0); Platelets 164 thou/uL (152-406); RBC Red Blood Cell Count 4.75 M/uL (3.86-4.86); Red Cell Distribution Width 13.5 % (12.1-15.2)
[2023-10-03 08:55] LABS: Anion Gap 7.4 mEq/L (5.0-15.0); Potassium 4.4 mEq/L (3.5-5.1)
[2023-10-03 08:56] LABS: Magnesium 2.2 mg/dL (1.6-2.4); Troponin High Sensitivity 45.4 pg/mL (<58.9)
--- NOTE | 2023-10-03 09:11 | RAD REPORT ---
EXAM DESCRIPTION: RAD - Chest Single View - 10/03/2023 9:04 am CLINICAL HISTORY: CHEST PAIN Chest pain. COMPARISON: Chest Pa And Lat (2 Views) dated 11/04/2021; Chest Pa And Lat (2 Views) dated 01/09/2021; C hest Single View dated 04/23/2018; Chest Pa And Lat (2 Views) dated 11/28/2017 FINDINGS: Portable technique limits examination quality. Mild pulmonary edema. The heart is moderately enlarged. No displaced fractures. IMPRESSION: Mild CHF.
--- NOTE | 2023-10-03 09:58 | RAD REPORT ---
EXAM DESCRIPTION: CT - Chest For Pe Angio - 10/03/2023 9:41 am CLINICAL HISTORY: Chest pain. CHEST PAIN COMPARISON: No comparisons TECHNIQUE: CT angiogram of the pulmonary arteries was performed with MIP. All CT scans are performed using dose optimization technique as appropriate and may include automated exposure control or mA/KV adjustment according to patient size. FINDINGS: No evidence of pulmonary thromboembolism. No acute aortic finding demonstrated. Mild diffuse interstitial pulmonary edema. Cardiac size is enlarged, particularly the right heart. No significant pericardial or pleural fluid. No concerning bony finding. IMPRESSION: No evidence of pulmonary thromboembolism. Mild CHF/ volume overload pattern.
--- NOTE | 2023-10-03 10:14 | ER ---
Nurse's Notes [facility] Name: Ariadne Banerjee Age: 78 yrs Sex: Female : 1945 Arrival Date: 10/03/2023 Time: 08:00 Bed 7 Private MD: Diagnosis: Chest pain, unspecified Presentation: 10/02 08:03 Chief complaint: Chief complaint: Patient states: chest pain that is described as aa5 heaviness, began at 0400 today, reports radiates up to jaw. 08:03 Onset of symptoms was October 03, 2023. aa5 08:03 Acuity: GRETCHEN 2 aa5 08:03 Coronavirus screen: At this time, the client does not indicate any symptoms associated aa5 with coronavirus-19. Ebola Screen: Patient denies travel to an Ebola-affected area in the 21 days before illness onset. Initial Sepsis Screen: Does the patient meet any 2 criteria? No. Patient's initial sepsis screen is negative. Does the patient have a suspected source of infection? No. Patient's initial sepsis screen is negative. Risk Assessment: Do you want to hurt yourself or someone else? Patient reports no desire to harm self or others. 08:03 Method Of Arrival: Ambulatory aa5 Triage Assessment: 08:15 General: Appears in no apparent distress. obese, Behavior is cooperative, appropriate bp for age, anxious. Pain: Complains of pain in chest. Cardiovascular: Reports chest pain, since 0400. Historical: - Allergies: 08:03 No Known Allergies; aa5 - PMHx: 08:03 Atrial Fib; cancer (anal) (Atrial Fib); aa5 - PSHx: 08:03 watchman (Atrial Fib); aa5 08:24 hysterectomy; Appendectomy; colon resection; aa5 - Immunization history:: Adult Immunizations up to date. - Social history:: Smoking status: Patient denies any tobacco usage or history of. Screenin:15 [facility] ED Fall Risk Assessment (Adult) History of falling in the last 3 months, bp including since admission No falls in past 3 months (0 pts). Abuse screen: Denies threats or abuse. Denies injuries from another. Nutritional screening: No deficits noted. Tuberculosis screening: No symptoms or risk factors identified. Assessment: 08:15 General: SEE TRIAGE NOTE. bp 09:24 Pain: Complains of pain in chest Pain does not radiate. Pain began suddenly. ko1 10:26 Reassessment: REPORT FAXED FOR RM 426. bp Vital Signs: 08:03 BP 113 / 69; Pulse 78; Resp 18 S; Temp 97.3(TE); Pulse Ox 98% on R/A; Weight 101.15 kg aa5 (R); Height 5 ft. 7 in. (R); 08:35 BP 108 / 65; Pulse 66; Resp 15; Pulse Ox 99% ; ko1 09:26 BP 108 / 60; Pulse 73; Resp 15; Pulse Ox 99% ; ko1 10:30 BP 113 / 55; Pulse 65; Resp 16; Pulse Ox 97% ; bp 08:03 Body Mass Index 34.93 (101.15 kg, 170.18 cm) aa5 ED Course: 08:03 Patient arrived in ED. bp 08:03 Preethi Zhang, CARLOS is Primary Nurse. ko1 08:03 Madhu Velez DO is Attending Physician. ms3 08:03 Arm band placed on. aa5 08:04 Radha Szymanski FNP-C is PHCP. ms3 08:05 EKG done, by ED staff, reviewed by Radha CURRIE. aa5 08:15 Patient has correct armband on for positive identification. Provided Education on: N/A. bp Client placed on continuous cardiac and pulse oximetry monitoring. NIBP monitoring applied. quality assurance monitor final on. 08:19 Triage completed. aa5 08:30 Inserted saline lock: 22 gauge in right forearm, using aseptic technique. Blood bp collected. 08:31 Basic Metabolic Panel Sent. bp 08:31 CBC with Diff Sent. bp 08:31 Magnesium Sent. bp 08:31 NT PRO-BNP Sent. bp 08:31 Troponin HS Sent. bp 09:06 XRAY Chest (1 view) In Process Unspecified. EDMS 09:24 No provider procedures requiring assistance completed. Patient maintains SpO2 ko1 saturation greater than 95% on room air. 09:42 CT Chest For PE Angio In Process Unspecified. EDMS 10:13 Harvey Khan MD is Hospitalizing Provider. kb Administered Medications: 08:20 Drug: Aspirin PO Chewable Tablet 243 mg PO once; 81 mg tablets x 3 Route: PO; ko1 09:00 Follow up: Response: No adverse reaction ko1 10:50 Drug: fentaNYL (PF) IVP 25 mcg IVP once Route: IVP; Site: right forearm; bp 10:53 Follow up: Response: No adverse reaction bp 10:50 Drug: Ondansetron IVP 4 mg IVP once; over 2 minutes Route: IVP; Site: right forearm; bp 10:53 Follow up: Response: No adverse reaction bp Medication: 08:15 VIS not applicable for this client. bp Outcome: 10:13 Decision to Hospitalize by Provider. kb 11:22 Patient left the ED. aa5 Signatures: Dispatcher [employer] EDMS Radha Szymanski, FARMER C[employer] GRAIN-C FARMER [employer] GRAIN-Yeni Pineda RN RN aa5 Edward Jane, RN RN bp Madhu Velez DO DO ms3 Preethi Zhang, CARLOS RN ko1 Corrections: (The following items were deleted from the chart) 08:19 08:03 Chief complaint: aa5 aa5 08:20 08:03 Chief complaint: Patient states: chest pain that is described as heaviness, began aa5 at 0400 today. Chief complaint: Patient states: chest pain that is described as heaviness, began at 0400 today. aa5 08:20 08:18 Onset of symptoms was October 03, 2023 aa5 aa5 08:20 08:18 Acuity: GRETCHEN 2 aa5 aa5
--- NOTE | 2023-10-03 10:14 | EDPHYS ---
Physician Documentation [facility] Name: Ariadne Banerjee Age: 78 yrs Sex: Female : 1945 Arrival Date: 10/03/2023 Time: 08:00 Bed 7 Private MD: ED Physician Madhu Velez HPI: 10/02 10:12 This 78 yrs old Female presents to ER via Ambulatory with complaints of Chest Pain. kb 10:12 Patient is a 78-year-old female who presents for chest pain that started at 0400 this kb morning with shortness of breath. Reports heaviness to the chest that is worse with inspiration. Also reports pain to the left side of her neck and jaw but states that it is not radiating pain, this seems to be 2 separate pains. Denies nausea, vomiting, fever, cough, congestion.. Historical: - Allergies: 08:03 No Known Allergies; aa5 - PMHx: 08:03 Atrial Fib; cancer (anal) (Atrial Fib); aa5 - PSHx: 08:03 watchman (Atrial Fib); aa5 08:24 hysterectomy; Appendectomy; colon resection; aa5 - Immunization history:: Adult Immunizations up to date. - Social history:: Smoking status: Patient denies any tobacco usage or history of. ROS: 10:10 Constitutional: As per HPI kb Exam: 08:35 Constitutional: This is a well developed, well nourished patient who is awake, alert, kb and in no acute distress. Head/Face: Normocephalic, atraumatic. ENT: Moist Mucous membranes Respiratory: Respirations even and unlabored. No increased work of breathing. Talking in full sentences Abdomen/GI: Soft, non-tender. No distention Skin: Warm, dry with normal turgor. Normal color. MS/ Extremity: Pulses equal, no cyanosis. Neurovascular intact. Full, normal range of motion. Neuro: Awake and alert, GCS 15, oriented to person, place, time, and situation. Moves all extremities. Normal gait. 08:35 Cardiovascular: Rate: normal, Rhythm: irregularly irregular, 08:35 ECG was reviewed by the Attending Physician. Vital Signs: 08:03 BP 113 / 69; Pulse 78; Resp 18 S; Temp 97.3(TE); Pulse Ox 98% on R/A; Weight 101.15 kg aa5 (R); Height 5 ft. 7 in. (R); 08:35 BP 108 / 65; Pulse 66; Resp 15; Pulse Ox 99% ; ko1 09:26 BP 108 / 60; Pulse 73; Resp 15; Pulse Ox 99% ; ko1 10:30 BP 113 / 55; Pulse 65; Resp 16; Pulse Ox 97% ; bp 08:03 Body Mass Index 34.93 (101.15 kg, 170.18 cm) aa5 MDM: 08:04 Patient medically screened. ms3 10:06 Data reviewed: vital signs, nurses notes. ED course: HEART score 6. kb 10:06 Consideration of Admission/Observation Patient was admitted/placed on observation. kb Escalation of care including admission/observation considered. Management of patient was discussed with the following: Primary Care Provider: Dr Khan accepts pt for admission. 10:13 Differential diagnosis: abnormal EKG, acute myocardial infarction, coronary artery kb disease chest wall pain, congestive heart failure pulmonary embolus. The patient was given aspirin in the Emergency Department. Counseling: I had a detailed discussion with the patient and/or guardian regarding the historical points, exam findings, and any diagnostic results supporting the discharge/admit diagnosis, lab results, radiology results, the need for further work-up and treatment in the hospital. 10/02 08:09 Order name: Basic Metabolic Panel; Complete Time: 08:58 kb 10/02 08:09 Order name: CBC with Diff; Complete Time: 08:44 kb 10/02 08:09 Order name: Magnesium; Complete Time: 08:58 kb 10/02 08:09 Order name: NT PRO-BNP; Complete Time: 08:58 kb 10/02 08:09 Order name: Troponin HS; Complete Time: 08:58 kb 10/02 10:05 Order name: CRP; Complete Time: 10:34 kb 10/02 08:09 Order name: XRAY Chest (1 view); Complete Time: 09:15 kb 10/02 09:10 Order name: CT Chest For PE Angio; Complete Time: 09:59 kb 10/02 08:09 Order name: EKG; Complete Time: 08:09 kb 10/02 08:09 Order name: Cardiac monitoring; Complete Time: 08:13 kb 10/02 08:09 Order name: EKG - Nurse/Tech; Complete Time: 08:13 kb 10/02 08:09 Order name: IV Saline Lock; Complete Time: 08:31 kb 10/02 08:09 Order name: Labs collected and sent; Complete Time: 08: kb 10/02 08:09 Order name: O2 Per Protocol; Complete Time: 08: kb 10/02 08:09 Order name: O2 Sat Monitoring; Complete Time: 08: kb EC:35 Rate is 69 beats/min. Rhythm is irregularly irregular. Left axis deviation noted. QRS kb interval is normal at 86 msec. QT interval is normal at 417 msec. Clinical impression: Atrial Fibrillation. Administered Medications: 08:20 Drug: Aspirin PO Chewable Tablet 243 mg PO once; 81 mg tablets x 3 Route: PO; ko1 09:00 Follow up: Response: No adverse reaction ko1 10:50 Drug: fentaNYL (PF) IVP 25 mcg IVP once Route: IVP; Site: right forearm; bp 10:53 Follow up: Response: No adverse reaction bp 10:50 Drug: Ondansetron IVP 4 mg IVP once; over 2 minutes Route: IVP; Site: right forearm; bp 10:53 Follow up: Response: No adverse reaction bp Disposition: 10:11 I was immediately available on-site in the Emergency Department for consultation in the ms3 care of the patient. Disposition Summary: 10/03/23 10:13 Hospitalization Ordered Notes: Hospitalization Status: Observation kb Provider: Harvey Khan Location: Telemetry/MedSurg (observation) kb Condition: Stable kb Problem: new kb Symptoms: are unchanged kb Bed/Room Type: [facility] Room Assignment: 42(10/03/23 10:21) bd Diagnosis - Chest pain, unspecified kb Forms: - Medication Reconciliation Form kb - SBAR form kb - Leadership Thank You Letter kb Signatures: Dispatcher [employer] Radha Diamond FNP-C FNP-Mackenzie Pizano Audri, RN RN aa5 Edward Jane RN RN bp Madhu Velez DO DO ms3 Preethi Zhang RN RN ko1 Corrections: (The following items were deleted from the chart) 10:21 10:13 kb bd
[2023-10-03] MEDS ORDERED: FENTANYL CITR 100 MCG/2 ML ONE (10:46)
[2023-10-03] MEDS ORDERED: ONDANSETRON 4 MG/2 ML VIAL ONE (10:46)
[2023-10-03 12:22] VITALS: BMI 34.9
[2023-10-03] MEDS: dexAMETHasone 4 MG/ML VIAL IV SCH (17:14)
[2023-10-03] MEDS: FUROSEMIDE 20 MG/ 2ML VIAL IV SCH (17:14)
--- NOTE | 2023-10-03 17:39 | P.SSS ---
Patient History Date of Service: 10/03/23 Reason for admission: CHEST PAIN, NECK PAIN ONE DAY History of Present Illness: RICHIE HAS HISTORY OF A FIB AND COMES WITH CHEST PAIN WITH RADIATION TO NECK. HER PAIN IN PLEURITIC AND HAS MORE PAIN ON PRESSURE OF RIBS. SHE HAS NO DYSPNEA. Allergies No Known Allergies Allergy (Verified 11/04/21 14:35) Home Medications: Aspirin [Aspirin EC 81 MG] 81 mg PO DAILY 10/03/23 Duloxetine [Cymbalta *] 60 mg PO DAILY 10/03/23 Spironolactone [Aldactone*] 100 mg PO DAILY 10/03/23 - Past Medical/Surgical History Has patient received pneumonia vaccine in the past: Yes Diabetic: No -: colon cancer -: afib -: blood clots -: colon resection -: hyster -: appy - Social History Smoking Status: Never smoker Alcohol use: No CD- Drugs: No Caffeine use: Yes Place of Residence: Home Review of Systems 10-point ROS is otherwise unremarkable General: Weakness Physical Examination - Vital Signs Temperature: 97.3 F Blood Pressure: 103/54 Pulse: 77 Respirations: 18 Pulse Ox (%): 95 - Physical Exam General: Mild distress HEENT: Atraumatic, PERRLA, Mucous membr. moist/pink, EOMI, Sclerae nonicteric Neck: Supple, 2+ carotid pulse no bruit, No LAD, Without JVD or thyroid abnormality Respiratory: Clear to auscultation bilaterally, Normal air movement Cardiovascular: Regular rate/rhythm, Normal S1 S2 Gastrointestinal: Normal bowel sounds, No tenderness Musculoskeletal: No tenderness Integumentary: No rashes Neurological: Normal gait, Normal speech, Normal strength at 5/5 x4 extr, Normal tone, Normal affect Lymphatics: No axilla or inguinal lymphadenopathy - Studies Laboratory Data (last 24 hrs) 10/03/23 10/03/23 08:30 08:30 WBC 4.90 Hgb 14.1 Hct 42.0 Plt Count 164 Sodium 136 Potassium 4.4 BUN 19 H Creatinine 1.01 Glucose 104 Magnesium 2.2 - Diagnosis (Problem(s)) (1) Atypical chest pain Current Visit: Yes Status: Acute Plan: 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 STEROID IV MAY HELP HER PAIN. (2) Costochondral chest pain Current Visit: Yes Status: Acute Plan: ABOVE. (3) A-fib Current Visit: Yes Status: Chronic Plan: SHE HAS WATCHMAN DONE NOW AND WILL NEED XARELTO SHE IS OFF NOW. - Disposition Disposition: ROUTINE DISCHARGE
--- NOTE | 2023-10-03 19:57 | CON ---
Date of Consultation: 10/03/2023 Reason For Consultation: Chest pain. History Of Present Illness: 78-year-old female, history of atrial fibrillation, status post Watchman placement 2 years ago, presented with chest pain. It is pressure-like, radiates to her neck and jaw on and off for the past 2 days. Denies having any nausea, vomiting, or diaphoresis. No fever. No significant cough. She does have mild dyspnea on exertion as well. Past Medical History: AFib. Medications: Refer to reconciliation sheet for detailed list. Allergies: NO KNOWN DRUG ALLERGIES. Past Surgical History: Watchman placement, hysterectomy, appendectomy, and colon resection. Family History: No premature coronary artery disease or cancer. Social History: She does not smoke or drink. Does not use any drugs. Review of Systems: All systems were reviewed, they were negative except what was mentioned in the HPI. Physical Examination: Vital Signs: Reviewed. Head and Neck: Pupils are equal, reactive to light. Intact eye movements. No JVD. No cervical lym phadenopathy. Neck is supple. Thyroid is not enlarged. Lungs: Clear to auscultation bilaterally. No rhonchi, wheezing, or crackles. No accessory muscle u se. Heart: Irregular. No extra sounds. Abdomen: Soft, nontender. Bowel sounds positive. No organomegaly. No masses or hernia. No rigidi ty or rebound. Extremities: No edema, clubbing, or cyanosis. Intact pulses. Skin: No rash or nodule. Neurologic: Alert, awake, oriented x3. No acute focal deficits appreciated. Investigations: Hemoglobin 14.1, BUN is 19, creatinine 1.1. Troponin 45. NT-proBNP 694, and C-reac tive protein is 4.8. CT of the chest showed no PE; mild CHF and volume overload pattern. Assessment And Recommendations: 1.Chest pain with very atypical features, but also should probably have heart failure component as w ell. Admit to serial sets of cardiac enzymes. Start her on baby aspirin and start on Lovenox 1 mg/k g subcu q.12 hours and plan for coronary angiogram tomorrow. 2.Congestive heart failure with mild exacerbation. Recommend diuresis with Lasix 20 mg twice a day. Monitor BUN, creatinine, electrolytes, and obtain an echo. 3.Atrial fibrillation, rate is controlled. Continue home medications. SR/MODL Voice ID: [id number] Report ID: [id number]
[2023-10-03] MEDS: ENOXAPARIN 100 MG/ML SYR SQ SCH (20:58)
[2023-10-04 07:05] LABS: Absolute Lymphocytes (CBC) 0.4 K/uL (0.7-4.9); Absolute Neutrophil 4.4 K/uL (1.8-8.0); Basophils % 0.2 % (0-1.3); Eosinophils % 0.1 % (0-4.4); Hemoglobin 13.6 g/dL (12.0-15.0); Lymphocytes % 8.7 % (15.3-44.8); MCH 29.3 pg (27.0-35.0); MCHC 33.1 g/dL (32.0-36.0); MCV 88.5 fL (80-100); MPV 9.9 fL (7.6-11.3); Monocytes % 0.7 % (3.3-12.3); Neutrophils % 90.3 % (41.7-73.7); Platelets 173 thou/uL (152-406); RBC Red Blood Cell Count 4.63 M/uL (3.86-4.86); Red Cell Distribution Width 13.4 % (12.1-15.2)
[2023-10-04 07:19] LABS: Anion Gap 9.1 mEq/L (5.0-15.0); Potassium 4.1 mEq/L (3.5-5.1)
[2023-10-04] MEDS: ASPIRIN EC 81 MG TAB PO SCH (09:00)
[2023-10-04] MEDS ORDERED: ASPIRIN EC 81 MG TAB PO SCH (09:00)
[2023-10-04] MEDS: SPIRONOLACTONE 100 MG TAB PO SCH (09:00)
[2023-10-04] MEDS: DULOXETINE 30 MG CAP PO SCH (09:00)
[2023-10-04 09:11] LABS: Blood Morphology Comment NOT SEEN (NOT SEEN); White Blood Cell Scan OK (OK)
[2023-10-04 09:12] LABS: Platelet Estimate ADEQ
[2023-10-04 10:44] VITALS: O2SAT 91
[2023-10-04] MEDS ORDERED: HEPA 1000U/500MLS 2,000 UNIT/1,000 ML BAG IV ONE (15:05)
[2023-10-04] MEDS ORDERED: MIDAZOLAM HCL 2 MG/2 ML INJ ONE (15:06)
[2023-10-04] MEDS ORDERED: FENTANYL CITR 100 MCG/2 ML ONE (15:06)
[2023-10-04] MEDS ORDERED: VERAPAMIL HCL 10 MG/4 ML VIAL IV ONE (15:06)
[2023-10-04] MEDS ORDERED: HEPARIN 5000 UNIT/ML 1 ML VIAL ONE (15:07)
[2023-10-04] MEDS ORDERED: HEPARIN 10,000 UNIT/10 ML VIAL IV ONE (15:07)
[2023-10-04] MEDS ORDERED: ATROPINE SULF 1 MG/10 ML SYR IV ONE (15:07)
[2023-10-04] MEDS ORDERED: TICAGRELOR 90 MG TABLET PO ONE (15:07)
[2023-10-04] MEDS ORDERED: ASPIRIN 325 MG TAB ONE (15:08)
[2023-10-04] MEDS ORDERED: CLOPIDOGREL 75 MG TABLET ONE (15:08)
[2023-10-04] MEDS ORDERED: LIDOCAINE 1% 20 ML MDV ONE (15:08)
[2023-10-04] MEDS: NA CHLORIDE 0.9% 500 ML ONE (15:19)
--- NOTE | 2023-10-04 17:06 | EKG ---
Test Date: 2023-10-03 Test Time: 07:57:34 Channel Process Plant Operator: NAIN MEASUREMENT RESULTS: Intervals: Rate: 69 [place]: QRSD: 86 QT: 390 QTc: 417 [place]: P: AL: QRS: -76 T: 57 INTERPRETIVE STATEMENTS: Atrial fibrillation with premature ventricular or aberrantly conducted complexes Left axis deviation Abnormal ECG Compared to ECG 04/23/2018 22:30:46 Left-axis deviation now present Electronically Signed On 10-04-23 17:01:43 CDT by Luke Guthrie
[2023-10-04 19:57] VITALS: BP 110/53; TEMP 97.1
--- NOTE | 2023-10-04 20:30 | PN ---
Date of Progress Note: 10/04/2023 Subjective: The patient is seen by bedside. Continues to have chest pain on and off, pressure-like with dyspnea on exertion. Review of Systems: No nausea, vomiting, diarrhea. No dysuria, polyuria, urgency. No skin rash. All other systems revi ewed and they were negative except for mentioned in HPI above. Physical Examination: Vital Signs: Reviewed. Head and Neck: Pupils are equal, reactive to light. Intact eye movements. No JVD. No cervical lym phadenopathy. Neck is supple. Thyroid is not enlarged. Lungs: Clear to auscultation bilaterally. No rhonchi, rales, or crackles. No accessory muscle use. Heart: Irregularly irregular. No extra sounds. Abdomen: Soft, nontender. Bowel sounds positive. No organomegaly. No masses or hernia. No rigidi ty or rebound. Extremities: No edema, clubbing, cyanosis. Intact pulses. Skin: No rash. Neurologic: Alert, awake, oriented x3. No acute focal deficits appreciated. Investigation: Labs reviewed. Assessment/recommendation: 1.Chest pain, status post coronary angiogram. No coronary artery disease. We will look for other c auses of chest pain, specifically do a D-dimer. If it is elevated, then CT scan of the chest to rule out PE. 2.Diastolic heart failure. Appears to be hemodynamically stable. LVEDP is normal. Continue home m edications. 3.Atrial fibrillation, controlled. She is status post appendage closure. Continue current therapy including baby aspirin. SR/MODL Voice ID: [id number] Report ID: [id number]
--- NOTE | 2023-10-05 03:36 | OP ---
Date of Procedure: 10/04/2023 Surgeon: ALEXUS PELAYO Procedures Performed: 1.Selective coronary angiogram. 2.Left heart catheterization. Indication: Unstable angina. Access: Right radial artery, 6-Kazakh, closed with TR band. Complications: None. Bleeding: Less than 50 mL. Total Sedation Time: 20 minutes. Description Of Procedure: After risks, benefits, and alternatives were explained, the patient agreed to procedure and signed informed consent. [facility] prepped and draped in usual sterile fashion. Then, I accessed right radial artery using Pedi atric micropuncture kit, placed a 6-Kazakh Slender sheath, took 5-Kazakh [place] 4.0 catheter into the aortic root, engaged the RCA and then across the aortic valve over the wire and measured the LVEDP. Pullback did not record any gradient and exchanged for a 6-Kazakh JL 3.5 catheter, engaged the left m ain, took standard views. Then, catheter was removed, sheath was removed, and TR band was placed for closure with good hemostasis. Findings: 1.Left main: Large and normal. 2.LAD: Large and normal. Normal diagonal branches. 3.Left circumflex: Small with luminal irregularities. 4.RCA: Large, dominant, and normal. 5.LVEDP normal at 9 mmHg. Conclusion: 1.Normal coronary arteries. 2.Normal LVEDP. Recommendations: Search for other causes of chest pain. SR/MODL Voice ID: [id number] Report ID: [id number]
--- NOTE | 2023-10-05 06:56 | ECHO ---
HEIGHT: 5 ft 7 in WEIGHT: 223 lb 0 oz DATE OF STUDY: 10/04/[address]: Luke Guthrie 2-DIMENSIONAL: YES M.MODE: YES DOPPLER: YES COLOR FLOW: YES TDS: PORTABLE: YES DEFINITY: BUBBLE STUDY: DIAGNOSIS: CONGESTIVE HEART FAILURE CARDIAC HISTORY: CATHERIZATION: SURGERY: PROSTHETIC VALVE: PACEMAKER: MEASUREMENTS (cm) DIASTOLIC (NORMALS) SYSTOLIC (NORMALS) IVSd 0.9 (0.6-1.2) LA Diam 4.2 (1.9-4.0) LVEF 64% LVIDd 4.2 (3.5-5.7) LVIDs 2.8 (2.0-3.5) %FS 34% LVPWd 1.1 (0.6-1.2) Ao Diam 2.7 (2.0-3.7) 2 DIMENSIONAL ASSESSMENT: RIGHT ATRIUM: ENLARGED LEFT ATRIUM: ENLARGED RIGHT VENTRICLE: NORMAL LEFT VENTRICLE: NORMAL TRICUSPID VALVE: NORMAL MITRAL VALVE: MILD MITRAL REGURGITATION PULMONIC VALVE: NORMAL AORTIC VALVE: MILD AORTIC INSUFFICIENCY PERICARDIAL EFFUSION: NONE AORTIC ROOT: NORMAL LEFT VENTRICULAR WALL MOTION: NORMAL DOPPLER/COLOR FLOW: SEE BELOW COMMENTS: 1. NORMAL LEFT VENTRICULAR EJECTION FRACTION 60-65% WITH NORMAL WALL MOTION 2. BI-ATRIAL ENLARGEMENT 3. MILD TRICUSPID REGURGITATION 4. MILD AORTIC INSUFFICIENCY TECHNOLOGIST: KARINA RENEE
== END 2023-10-04 20:10 | disposition home or self-care (01) ==
LOC: ER 08:00 → ERHOLD 10:18 → 4TH 10:22
PROVIDERS: ADMIT Internal Medicine; ATTEND Internal Medicine
PROC: 4A023N7 Measurement of Cardiac Sampling and Pressure, Left Heart, Percutaneous Approach (ICD-10-PCS; principal; 2023-10-04)
PROC: B2111ZZ Fluoroscopy of Multiple Coronary Arteries using Low Osmolar Contrast (ICD-10-PCS; 2023-10-04)
DX: M94.0 Chondrocostal junction syndrome [Tietze] (principal); I48.91 Unspecified atrial fibrillation; I50.30 Unspecified diastolic (congestive) heart failure; Z85.038 Personal history of other malignant neoplasm of large intestine; Z90.49 Acquired absence of other specified parts of digestive tract; Z90.710 Acquired absence of both cervix and uterus
CPT/HCPCS: 93005; 93306; 85025 ×2; 80048 ×2; 36415; 83735; 84484 ×3; 83880; 86140; 71275; 71045; 93458; 76937; 96375; 96374; 99285; Q9967; C1893; Q9966; J1644; J1650; J1100 ×3; J1940 ×2; J2001; J0461; J3010; J2405; G0378 ×4; J7040; 99152; 99153; J2250

== ENCOUNTER 2024-05-23 06:53 | Day surgery (SDC) | payer OTHER ==
[2024-05-21 11:13] LABS: Absolute Eosinophils 0.1 K/uL (0-0.5); Absolute Lymphocytes (CBC) 0.8 K/uL (0.7-4.9); Absolute Monocytes 0.3 K/uL (0.1-1.3); Absolute Neutrophil 2.5 K/uL (1.8-8.0); Basophils % 0.6 % (0-1.3); Eosinophils % 2.3 % (0-4.4); Hematocrit 42.5 % (36.0-45.0); Hemoglobin 13.6 g/dL (12.0-15.0); Lymphocytes % 21.5 % (15.3-44.8); MCH 28.6 pg (27.0-35.0); MCHC 31.9 g/dL (32.0-36.0); MCV 89.8 fL (80-100); MPV 10.3 fL (7.6-11.3); Monocytes % 7.2 % (3.3-12.3); Neutrophils % 68.4 % (41.7-73.7); Nucleated Red Blood Cells % 0.1 % (0-0); Platelets 177 thou/uL (152-406); RBC Red Blood Cell Count 4.73 M/uL (3.86-4.86); Red Cell Distribution Width 14.1 % (12.1-15.2)
[2024-05-21 11:25] LABS: Anion Gap 7.6 mEq/L (5.0-15.0); Potassium 4.6 mEq/L (3.5-5.1)
--- NOTE | 2024-05-21 12:02 | EKG ---
Test Date: 2024-05-21 Test Time: 10:52:50 Sort Line Worker: VANCE MEASUREMENT RESULTS: Intervals: Rate: 68 ND: QRSD: 86 QT: 368 QTc: 391 [place]: P: ND: QRS: -51 T: 71 INTERPRETIVE STATEMENTS: Atrial fibrillation Low voltage QRS Left anterior fascicular block Nonspecific T wave abnormality, probably digitalis effect Abnormal ECG Compared to ECG 10/03/2023 07:57:34 Low QRS voltage now present Left anterior fascicular block now present T-wave abnormality now present Ventricular premature complex(es) no longer present Left-axis deviation no longer present Electronically Signed On 05-21-24 12:01:15 ROUND CUTTER OPERATOR by Jacobo Suggs
[2024-05-23] MEDS: Ringers Lactate 1,000 ML IV ONE (07:44)
[2024-05-23] MEDS ORDERED: propofoL 200 MG/20 ML VIAL IV ONE ×3 (08:19→09:19)
[2024-05-23] MEDS ORDERED: LIDOCAINE 1% MPF 5 ML VIAL ONE (08:19)
[2024-05-23] MEDS ORDERED: ALBUTEROL 2.5 MG/3 ML NEB SOL ONE (10:03)
[2024-05-23 10:59] VITALS: BP 126/63; TEMP 98; O2SAT 99
== END 2024-05-23 10:40 | disposition home or self-care (01) ==
LOC: OR 06:53
PROVIDERS: ATTEND Internal Medicine Gastroenterology
PROC: 0DB68ZX Excision of Stomach, Via Natural or Artificial Opening Endoscopic, Diagnostic (ICD-10-PCS; 2024-05-23)
PROC: 0DJD8ZZ Inspection of Lower Intestinal Tract, Via Natural or Artificial Opening Endoscopic (ICD-10-PCS; principal; 2024-05-23 08:30)
PROC: 0DB58ZX Excision of Esophagus, Via Natural or Artificial Opening Endoscopic, Diagnostic (ICD-10-PCS; 2024-05-23 08:30)
DX: R13.10 Dysphagia, unspecified (principal); R10.32 Left lower quadrant pain; R63.4 Abnormal weight loss; R10.31 Right lower quadrant pain; R14.2 Eructation; R10.13 Epigastric pain; R05.9 Cough, unspecified; K63.89 Other specified diseases of intestine; K64.8 Other hemorrhoids; R14.0 Abdominal distension (gaseous); R13.19 Other dysphagia; K44.9 Diaphragmatic hernia without obstruction or gangrene; K29.60 Other gastritis without bleeding; K29.50 Unspecified chronic gastritis without bleeding; Z85.038 Personal history of other malignant neoplasm of large intestine
CPT/HCPCS: 93005; 85025; 80048; 36415; 88312; 88305; 45378; 43239; J2704 ×3; J2003; J7613; J7120